=== PATIENT | male | born 1985 | race Caucasian/White ===

== ENCOUNTER 2022-05-20 08:54 | Emergency (ER) | payer OTHER, SELFPAY ==
[2022-05-20 09:00] VITALS: BP 133/51; PULSE 74; RESP 14; TEMP 37.1; O2SAT 100
--- NOTE | 2022-05-20 09:32 | ED.GENADULT ---
HPI - General Adult General Chief complaint: Dental/Oral Stated complaint: Toothache Source: patient Mode of arrival: ambulatory Limitations: no limitations History of Present Illness HPI narrative: Patient presents for evaluation of right lower dental pain for the last 2 days. He states the pain is constant, throbbing, rated anywhere from 6-10/10. He saw his dentist yesterday. He has a planned dental extraction 2 days from now. No fever, chills, nausea, vomiting, trismus, problems handling secretions. He does have some swelling in the affected area. He is taking 800 mg of ibuprofen with some improvement in his symptoms thereafter. No additional complaints or concerns. Related Data Allergies Allergy/AdvReac Type Severity Reaction Status Date / Time No Known Allergies Allergy Verified 05/20/22 09:07 Review of Systems Review of Systems: CONSTITUTIONAL: Denies fever, chills, or sweats. EYES: Denies visual changes, redness, or discharge. ENT: Reports right lower dental pain. Denies rhinorrhea, congestion, sore throat, or otalgia. CARDIOVASCULAR: Denies chest pain, palpitations, or edema. RESPIRATORY: Denies cough or dyspnea. GASTROINTESTINAL: Denies abdominal pain, nausea, vomiting, or diarrhea. GENITOURINARY: Denies dysuria or hematuria. SKIN: Denies rash or itching. MUSCULOSKELETAL: Denies back pain, joint pain, or myalgia. NEUROLOGIC: Denies headache, numbness, dizziness, or weakness. PSYCHIATRIC: Denies anxiety or depression. [facility] Past Medical History Medical History (Updated 05/20/22 @ 09:34 by MARIE Gomez, ) No pertinent past medical history Surgical History Surgical History No pertinent past surgical history Family History Family History Mother No problems noted. Social History Social History Smoking packs per day: 0.75 Smoking cigarettes per day: 15.0 Smoking status: Current every day smoker Substance use: current Substance use type: marijuana Gender identity (if verbalized by the patient): Male Spiritual care concerns: No Exam Narrative: GENERAL: Well-appearing, well-nourished, and in no acute distress. HEAD: Normocephalic, atraumatic. EYES: PERRLA and EOMI. ENT: Tooth #30 is fractured, eroded down to the gumline and necrotic. No visible or palpable abscess. There is some trace right mandibular swelling. Nares clear, no rhinorrhea or epistaxis. Mucous membranes moist. Oropharynx without tonsillar hypertrophy exudate or other lesions. Bilateral TMs pearly suarez nonbulging NECK: Supple. No adenopathy or masses. No carotid bruits or JVD CHEST: Clear to auscultation. No respiratory distress. No wheezes rales or rhonchi HEART: Regular rate and rhythm. No murmur heard. Normal peripheral pulses. ABDOMEN: Soft, nontender, nondistended, normal active bowel sounds. EXTREMITIES: Normal range of motion. No edema. SKIN: Warm, dry, no rash. NEURO: No focal deficits. Alert and oriented x3. PSYCH: Normal mood and affect. Course Course Emergency Course: This is a 37-year-old male that presented for evaluation of right lower dental pain. He has a planned dental extraction in 2 days. He has mild improvement in his symptoms with ibuprofen. He has used Tylenol with codeine in the past with favorable results. Will discharge with amoxicillin and Tylenol with codeine. He should follow-up with his dentist on Sunday for planned dental extraction. He should go to the ER for significant swelling, or systemic signs of infection. Patient is in agreement with plan of care, Level of Care: Express Care Visit Vital Signs Vital signs: Vital Signs Temperature 37.1 C 05/20/22 09:00 Pulse Rate 74 05/20/22 09:00 Respiratory Rate 14 05/20/22 09:00 Blood Pressure 133/51 L 05/20/22 09:00
== END 2022-05-20 09:40 | disposition home or self-care (01) ==
PROVIDERS: Emergency Provider Nurse Practitioner
DX: S02.5XXA Fracture of tooth (traumatic), initial encounter for closed fracture (principal); T14.90XA Injury, unspecified, initial encounter; K08.89 Other specified disorders of teeth and supporting structures; F17.210 Nicotine dependence, cigarettes, uncomplicated
CPT/HCPCS: 99213; G0463

== ENCOUNTER 2022-12-21 17:21 | Emergency (ER) | payer OTHER, SELFPAY ==
[2022-12-21 17:26] VITALS: BP 130/69; PULSE 73; RESP 16; TEMP 37; O2SAT 100
--- NOTE | 2022-12-21 17:45 | ED.EAR ---
HPI - Ear Problem General Chief complaint: Ear Stated complaint: ear infection Time Seen by Provider: 12/21/22 17:30 Source: patient, RN notes reviewed and old records reviewed Mode of arrival: ambulatory Limitations: no limitations History of Present Illness HPI Narrative: 37 year old male who awoke Sunday with complaints of right ear feeling clogged with muffled hearing. Patient reports no acute pain or any drainage from his right ear. Patient reports that he has been taking some Tylenol for his discomfort and an allergy medication. Patient denies any known fevers, chills, or sweats, denies any dizziness. MD Complaint: ear pain and decreased hearing Location: right ear Severity: mild Discharge from ear: Reports no Treatment prior to arrival: oral analgesic and other (allergy medication) Related Data Allergies Allergy/AdvReac Type Severity Reaction Status Date / Time No Known Allergies Allergy Verified 12/21/22 17:29 Review of Systems Review of Systems: CONSTITUTIONAL: Denies malaise, chills, sweats, or fever. EYES: Denies visual changes, redness, or discharge. ENT: Reports some rhinorrhea, congestion,no sinus pain, right otalgia no sore throat. CARDIOVASCULAR: Denies chest pain, palpitations, or edema. RESPIRATORY: Reports cough.? Denies dyspnea. GASTROINTESTINAL: Denies abdominal pain, nausea, vomiting, diarrhea SKIN: Denies rash or itching. MUSCULOSKELETAL: Denies myalgia. NEUROLOGIC: Denies headache. All systems reviewed & are unremarkable except as noted in HPI and below PMFSH Past Medical History Medical History (Updated 12/22/22 @ 00:01 by Lia Byrd) No pertinent past medical history Surgical History Surgical History (Updated 12/24/22 @ 19:20 by Shanthi Álvarez NP) History of hip surgery age 2 Family History Family History Mother No problems noted. Social History Social History Smoking packs per day: 0.75 Smoking cigarettes per day: 15.0 Smoking status: Current every day smoker Substance use: current Substance use type: marijuana Gender identity (if verbalized by the patient): Male Spiritual care concerns: No Comments At time of signature, agree with nursing past medical, surgical, social and family history. There is no relevant family history pertinent to the presenting complaint Exam Narrative: GENERAL: Well-appearing, well-nourished, and in no acute distress. HEAD: Normocephalic EYES: PERRLA, conjunctivae clear ENT: Nares clear, turbinates edematous and erythematous, clear discharge. Mucous membranes moist.Right TM red and bulging, Left TM normal pearly suarez with dull light reflex; no tragal tenderness. Oropharynx erythematous without lesions. Tonsils not enlarged and without exudate, no drooling, no hoarseness, no trismus, uvula midline. NECK: Supple. No lymphadenopathy CHEST: Clear to auscultation, breath sounds equal. No wheezing, rhonchi, rales, or stridor. No respiratory distress, speaks in full sentences.SAO2 100% on room air HEART: Regular rate and rhythm. No murmur heard. SKIN: Warm, dry, no rash. NEURO: Alert and oriented x3. PSYCH: Normal mood and affect Course Course Emergency Course: Patient is aware of diagnosis, understands and agrees to treatment plan.? Anticipatory guidance given.? Patient agrees to follow-up as directed and is aware of reasons to seek care at the emergency department. Portions of this record may have been created with voice recognition software Level of Care: Express Care Visit Vital Signs Vital signs: Vital Signs Temperature 37.0 C 12/21/22 17:26 Pulse Rate 73 12/21/22 17:26 Respiratory Rate 16 12/21/22 17:26 Blood Pressure 130/69 12/21/22 17:26 Pulse Oximetry 100 12/21/22 17:26 Oxygen Delivery Room Air 12/21/22 17:26
== END 2022-12-21 17:53 | disposition home or self-care (01) ==
PROVIDERS: Emergency Provider Registered Nurse
DX: H66.91 Otitis media, unspecified, right ear (principal); F17.210 Nicotine dependence, cigarettes, uncomplicated; F12.90 Cannabis use, unspecified, uncomplicated
CPT/HCPCS: 99213; G0463